=== PATIENT | female | born 1930 | race Caucasian/White ===

== ENCOUNTER 2019-09-24 12:33 | Emergency (ER) | payer OTHER ==
[~2019-09-24] VITALS: Ht 152.4 cm; Wt 54.0 kg
[2019-09-24 12:35] VITALS: BP_SYST 133
--- NOTE | 2019-09-24 12:35 | NUR ---
Patient to ER bed 4 to gown for evaluation. Side rails up. Assumed care.
--- NOTE | 2019-09-24 12:40 | NUR ---
Patient arrived via ambulance, [facility], and ambulatory to [facility]. Brought in for fall. Patient was leaving event and was found down at the car. Patient fell and hit her head, and hematoma palpated on right occipital and parietal lobe region. Patient states no headache, pain, or changes in vision. No LOC. Patient calm and cooperative. Will continue to follow up and monitor.
--- NOTE | 2019-09-24 12:42 | NUR ---
LORRAINE Al at bedside examining patient.
[2019-09-24 13:36] VITALS: BP_SYST 131
--- NOTE | 2019-09-24 13:36 | NUR ---
Patient given written and verbal discharge instructions and verbalizes understanding. ER MD discussed with patient the results and treatment provided. Patient in stable condition. ID arm band removed. Rx not given. Patient educated on pain management and to follow up with PMD. Pain Scale 0/10. Opportunity for questions provided and answered. Medication side effect fact sheet provided.
== END 2019-09-24 13:36 | disposition home or self-care (01) ==
LOC: SED 12:33
DX: S00.03XA Contusion of scalp, initial encounter (principal); E11.9 Type 2 diabetes mellitus without complications; I10 Essential (primary) hypertension; W18.09XA Striking against other object with subsequent fall, initial encounter; Y93.89 Activity, other specified; Y92.89 Other specified places as the place of occurrence of the external cause; Y99.8 Other external cause status
CPT/HCPCS: 70450-TC; 72125-TC; 99284